=== PATIENT | male | born 1960 | race Caucasian/White ===

== ENCOUNTER 2019-01-24 13:29 | Emergency (ER) | payer SELFPAY ==
[~2019-01-24] VITALS: Ht 175.3 cm; Wt 119.0 kg
[~2019-01-24 13:29] MED LIST: GABA-826 PO; GLIP10TA13 PO; HYDR-2442 PO; HYDR12.517 PO; LISI40TA PO; METF10002 PO; SITA100T PO; SULF-169 PO; [UNRECOGNIZED DRUG - OTHER]
--- NOTE | 2019-01-24 13:50 | NUR ---
PT REPORTS WOUND ON BOTTOM OF 1ST DIGIT ON RIGHT FOOT. ABOUT THE SIZE OF A QUARTER. MOIST. PT REPORTS HE HAS HAD THIS WOUND FOR 6 MONTHS AND "TODAY ITS BLEEDING MORE THAN USUAL. I DO MY BEST TO KEEP IN CLEAN". PT ALSO REPORTS PAIN THRHOUGHT RIGHT ANKLE. BANDAGE ON TOE REMOVED. PT IN BED. CALL LIGHT WITHIN REACH
[2019-01-24] MEDS ORDERED: NERVE PAIN (14:01)
[2019-01-24] MEDS ORDERED: METF850T10 PO (14:01)
[2019-01-24 14:31] LABS: BASOPHILS # (AUTO) 0.04 x10^3/uL (0-0.1); BASOPHILS % (AUTO) 1 % (0-1); EOSINOPHILS # (AUTO) 0.42 x10^3/uL (0-0.4); EOSINOPHILS % (AUTO) 6 % (1-7); LYMPHOCYTES # (AUTO) 2.23 x10^3/uL (1-3.4); LYMPHOCYTES % (AUTO) 32 % (22-44); MD NO; MEAN CORPUSCULAR HEMOGLOBIN 30.4 pg (27.5-34.5); MEAN CORPUSCULAR HGB CONC 33.6 g/dL (33.2-36.2); MEAN CORPUSCULAR VOLUME 90.4 fL (81-97); MEAN PLATELET VOLUME 8.5 fL (7.4-10.4); MONOCYTES % (AUTO) 7 % (2-9); NEUTROPHILS # (AUTO) 3.68 x10^3/uL (1.8-6.8); NEUTROPHILS % (AUTO) 54 % (42-75); PLATELET COUNT 265 x10^3/uL (130-400); RED BLOOD COUNT 4.57 x10^6/uL (4.38-5.82); RED CELL DISTRIBUTION WIDTH 13.1 % (9.4-14.8)
[2019-01-24 14:42] LABS: ALBUMIN 3.8 g/dL (3.4-5.0); ANION GAP 10 mmol/L (5-15); C-REACTIVE PROTEIN, QUANT 0.25 mg/dL (0.02-0.49); CALCIUM 8.9 mg/dL (8.5-10.1); CHLORIDE 102 mmol/L (98-107); CREATININE 1.22 mg/dL (0.7-1.3)
[2019-01-24 14:52] VITALS: BP 118/35
--- NOTE | 2019-01-24 14:53 | NUR ---
PT IN BED. CALL CYDNEY PARKS IN REACH. AWAITING LAB RESULTS. STATED HE IS IN SOME PAIN. WILL NOTIFY DOC.
[2019-01-24] MEDS ORDERED: KETOROLAC 60 MG/2 ML ONE (14:56)
[2019-01-24] MEDS ORDERED: KETOROLAC 30 MG/1 ML IM ONE (15:00)
[2019-01-24 15:18] LABS: HCT (SEDRATE) 41.3 % (39.2-51.8)
== END 2019-01-24 16:28 | disposition home or self-care (01) ==
LOC: ED 14:58
DX: L89.892 Pressure ulcer of other site, stage 2 (principal); I10 Essential (primary) hypertension; E11.42 Type 2 diabetes mellitus with diabetic polyneuropathy
CPT/HCPCS: 36415; 73630; 80048; 82040; 85025; 85651; 86140; 96372; 99284; J1885